=== PATIENT | female | born 1965 | race Caucasian/White ===

== ENCOUNTER → 2020-08-08 | Day surgery (SDC) | payer OTHER ==
[~2020-08-08] MED LIST: APPLE CIDER VI500 MG PO; ASPIRIN CHEWABL81 MG PO; CENTRUM ADULTS1 EACH PO; KEPPRA XR500 MG PO; OS-CAL500 MG PO; VITAMIN E600 UNIT PO
[2020-08-08 09:17] LABS: HCT 47.6 % (37.0-47.0); MCHC 31.5 g/dL (32.0-36.0); MPV 10.6 fL (6.0-9.5); RBC 5.35 M/uL (4.20-5.40); RDW 13.7 % (11.5-14.0)
[2020-08-08 09:35] LABS: ALBUMIN 4.6 g/dL (3.4-5.0); BILIRUBIN - TOTAL 1.2 mg/dL (0.2-1.0); BUN/CREAT RATIO (CALC) 17.2 RATIO; CREATININE 0.87 mg/dL (0.51-0.95); GLOBULIN (CALCULATION) 3.9 g/dL; POTASSIUM 3.8 mmol/L (3.5-5.1); TOTAL PROTEIN 8.5 g/dL (6.4-8.2)
== END | disposition home or self-care (01) ==
LOC: FAS 08:00
PROVIDERS: Surgery
DX: Z12.11 Encounter for screening for malignant neoplasm of colon (principal); Z86.010 Personal history of colon polyps; Z80.0 Family history of malignant neoplasm of digestive organs; D12.6 Benign neoplasm of colon, unspecified; M25.512 Pain in left shoulder; M25.511 Pain in right shoulder; F17.210 Nicotine dependence, cigarettes, uncomplicated; Z78.9 Other specified health status; Z88.6 Allergy status to analgesic agent; Z20.822 Contact with and (suspected) exposure to COVID-19
CPT/HCPCS: 36415; 80053; J2704; J7120